=== PATIENT | male | born 1955 | race Caucasian/White ===

== ENCOUNTER → 2019-01-15 | Outpatient (CLI) | payer MEDICARE, BC ==
[2019-01-15 11:45] LABS: Albumin 4.2 g/dL (3.5-5.0); Calcium 9.7 mg/dL (8.4-10.2); Potassium 3.8 mmol/L (3.5-5.1); Total Bilirubin 0.6 mg/dL (0.2-1.3); Total Protein 6.6 g/dL (6.3-8.2)
--- NOTE | 2019-01-15 12:21 | CT ---
EXAMINATION TYPE: CT chest wo con DATE OF EXAM: 01/15/2019 COMPARISON: None HISTORY: 63-year-old male COPD, emphysema TECHNIQUE: Contiguous axial scanning of the chest without IV contrast. Coronal and sagittal reconstru ctions performed. CT DLP: 546 mGycm Automated exposure control for dose reduction was used. FINDINGS: Heart normal size without pericardial effusion. Aorta normal caliber with conventional arch vessel branching anatomy. No thoracic lymphadenopathy by CT size criteria. Moderate centrilobular emphysema, more advanced in the upper lobes. No consolidation or pleural effus ion. 4 mm posterior right upper lobe pulmonary nodule, axial image 15. 3 mm peripheral right midlung pulmonary nodule, axial image 40. Focal patchy opacity measuring 1.9 cm in the posterior right lower lobe could represent a small infil trate or nodule and needs to be reassessed at short follow-up. Tiny hiatal hernia. Otherwise, visualized upper abdomen shows no gross abnormality. Bones: Endplate spondylosis lower thoracic spine. IMPRESSION: 1. COPD WITH MODERATE TO ADVANCED EMPHYSEMA. 2. A 1.9 CM FOCAL PATCH OF DENSITY POSTERIOR RIGHT LOWER LOBE COULD REPRESENT A SMALL INFILTRATE OR P ULMONARY NODULE WITH PARTIAL SOLID COMPONENT. THREE-MONTH FOLLOW-UP RECOMMENDED TO REASSESS. 3. ADDITIONAL 4 AND 3 MM PULMONARY NODULES ON THE RIGHT CAN BE REASSESSED AT FOLLOW-UP WELL.
== END | disposition home or self-care (01) ==
LOC: RADCTMAIN 10:42
PROVIDERS: ATTEND Internal Medicine Pulmonary Disease
DX: J44.9 Chronic obstructive pulmonary disease, unspecified (principal); R91.8 Other nonspecific abnormal finding of lung field; J98.4 Other disorders of lung
CPT/HCPCS: 36415; 71250; 80053; 80061; 84443

== ENCOUNTER → 2020-06-01 | Outpatient (CLI) | payer MEDICARE, BC ==
--- NOTE | 2020-06-01 09:59 | US ---
EXAMINATION TYPE: US abdomen complete DATE OF EXAM: 06/01/2020 COMPARISON: NONE CLINICAL HISTORY: 64-year-old male R10.84. The patient states he takes steroids. Generalized abdomina l pain. TECHNIQUE: Multiple sonographic images of the abdomen are obtained. FINDINGS: EXAM MEASUREMENTS: Liver Length: 10.1 cm Gallbladder Wall: 0.2 cm CBD: 0.5 cm Spleen: 8.9 cm Right Kidney: 10.4 x 5.6 x 5.4 cm Left Kidney: 10.2 x 4.7 x 4.7 cm Cook Starch notes: Technically difficult study due to midline bowel gas. Lower pole of bilateral kidn eys obscured by bowel gas. Pancreas: Only portions of the pancreatic body are seen. Remainder is secured due to shadowing from bowel gas. Liver: Homogeneous appearance without focal lesion. Gallbladder: 1.2 cm dependent gallstone with shadowing. In addition, there is comet tail artifact ar ising from the anterior wall compatible with adenomyomatosis. No gallbladder distention, wall thicken ing, or pericholecystic fluid. Evidence for sonographic Ocampo's sign: No CBD: wnl Spleen: wnl Kidneys: No hydronephrosis. Upper IVC: wnl Abd Aorta: Ectatic proximal and mid segments measuring 2.8 and 2.5 cm, respectively. IMPRESSION: 1. A 1.2 cm gallstone. No ancillary findings of acute cholecystitis. Some comet tail artifact from th e gallbladder wall compatible with benign adenomyomatosis. 2. No biliary ductal dilatation. 3. Ectatic proximal abdominal aorta at 2.8 cm.
== END | disposition home or self-care (01) ==
LOC: RADUSWWP 08:46
PROVIDERS: ATTEND Internal Medicine Gastroenterology
DX: K80.20 Calculus of gallbladder without cholecystitis without obstruction (principal); I77.811 Abdominal aortic ectasia; K82.8 Other specified diseases of gallbladder
CPT/HCPCS: 76700

== ENCOUNTER → 2020-06-01 | Outpatient (CLI) | payer MEDICARE, BC ==
--- NOTE | 2020-06-01 10:02 | XR ---
EXAMINATION TYPE: XR lumbosacral spine min 4V DATE OF EXAM: 06/01/2020 Comparison: None. Clinical History: 64-year-old male low back pain, R10.9 Findings: Gentle levoconvex curvature of the lumbar spine. Hypertrophic facet arthropathy mid to lower lumbar s pine. Trace grade 1 anterolisthesis L4-L5. Trace grade 1 retrolisthesis at both L1-L2 and L2-L3. Vert ebral body heights are preserved. Mild endplate spondylosis throughout. Impression: 1. Hypertrophic facet arthropathy mid to lower lumbar spine with trace grade 1 spondylolistheses at L 1-L2, L2-L3, and L4-L5. 2. Mild degenerative disc disease throughout. 3. No vertebral compression collapse.
== END | disposition home or self-care (01) ==
LOC: RADXRMAIN 09:12
PROVIDERS: ATTEND Internal Medicine
DX: M54.5 Low back pain (principal); M51.36 Other intervertebral disc degeneration, lumbar region
CPT/HCPCS: 72110

== ENCOUNTER → 2020-11-30 | Outpatient (CLI) | payer MEDICARE, BC ==
--- NOTE | 2020-12-01 09:35 | MM ---
Reason for exam: clinical finding. Physical Findings: Nurse Summary: nodule in the left breast at areola (nurse mj). MG 3D Diag Mammo W/Cad GARLAND Bilateral CC and MLO view(s) were taken. There are scattered fibroglandular densities. No suspicious calcifications are seen. Increased density left breast. Ultrasound recommended. These results were verbally communicated with the patient and result sheet given to the patient on 11/30/20. ASSESSMENT: Incomplete: need additional imaging evaluation, BI-RAD 0 RECOMMENDATION: Ultrasound of the left breast.
--- NOTE | 2020-12-01 09:37 | USB ---
Reason for exam: additional evaluation requested from abnormal screening. US Breast LT Left complete breast ultrasound includes all four quadrants, the retroareolar region and axilla. Finding demonstrates a 2.4 x 0.9cm irregular, questionable gynecomastia at the posterior nipple. Probable gynecomastia. Recommend clinical and surgical correlation. 6 month follow up ultrasound. These results were verbally communicated with the patient and result sheet given to the patient on 11/30/20. ASSESSMENT: Probably benign, BI-RAD 3 RECOMMENDATION: Follow-up diagnostic mammogram of both breasts in 6 months. Ultrasound of the left breast in 6 months. Manage patient on a clinical basis.
== END | disposition home or self-care (01) ==
LOC: RADMAMWWP 15:09
PROVIDERS: ATTEND Family Medicine
DX: N64.89 Other specified disorders of breast (principal)
CPT/HCPCS: 77066; 76641; G0279; 77062

== ENCOUNTER → 2021-04-14 | Outpatient (CLI) | payer MEDICARE, BC ==
--- NOTE | 2021-04-16 21:46 | PE ---
EXAMINATION TYPE: PET CT fusion skull to thigh DATE OF EXAM: 04/14/2021 COMPARISON: NONE HISTORY: Right lower lobe mass. History of COPD. TECHNIQUE: Following the intravenous administration of 11.08 mCi of F-18 FDG, whole body images are performed from the skull base to the midthigh. Images are reviewed on the computer in the coronal, a xial, and sagittal planes. Reconstructed rotating images are created on independent workstation and reviewed on the computer. A localization and attenuation correction CT is performed in conjunction with the PET scan. Blood glucose level equals 118. SCAN: Initial Scan FINDINGS: SKULL BASE AND NECK: No abnormal hypermetabolic uptake. CHEST, MEDIASTINUM, AND HILAR REGION: Background moderate to advanced underlying emphysematous change . In the right lower lobe posteriorly there is a 3.3 x 2.6 cm hypermetabolic mass axial image 128, ma x SUV is. No additional areas of abnormal hypermetabolic uptake. No hypermetabolic hilar or mediastin al lymph nodes. ABDOMEN AND PELVIS: No abnormal hypermetabolic masses or adenopathy. No adrenal masses. Normal excret ion. OSSEOUS STRUCTURES: 3 adjacent areas of abnormal hypermetabolic uptake in the anterior left upper rib s, suspect healing fractures. Additional foci more lateral left third and fourth ribs. Additional hea ling fractures suspected. Correlate clinically. OTHER CT: Bilateral gynecomastia is present. Prominent diverticulosis of the sigmoid colon. Mildly enlarged prostate. Scoliotic curvature in the s pine. 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 Healing left anterior and anterolateral upper rib fractures thought present, correlate clinica lly. No abnormal adenopathy or metastatic disease is seen.
== END | disposition home or self-care (01) ==
LOC: RADPETMAIN 17:00
PROVIDERS: ATTEND Radiology Diagnostic Radiology
DX: R91.8 Other nonspecific abnormal finding of lung field (principal)
CPT/HCPCS: 78815; A9552